=== PATIENT | female | born 1965 | race Caucasian/White ===

== ENCOUNTER 2018-05-30 22:01 | Emergency (ER) | payer OTHER ==
[~2018-05-30] VITALS: Ht 160 cm; Wt 62.1 kg
--- NOTE | 2018-05-30 22:05 | NUR ---
53 YO female BIB . 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 patient denies SOB, n/v or any other medical complaints at this time. Pt gowned, placed on radiographer cardiac catheterization. awaiting orders from provider, will continue to monitor
--- NOTE | 2018-05-30 22:10 | NUR ---
EMT AT BED SIDE FOR EKG
[2018-05-30 22:39] LABS: BASOPHILS % (AUTO) 0.2 % (0.0-2.0); EOSINOPHILS % (AUTO) 1.7 % (0.0-6.0); HEMATOCRIT 41 % (33-45); HEMOGLOBIN 13.6 g/dL (11.5-14.8); LYMPHOCYTES # (AUTO) 1.7 /CMM (0.8-4.8); LYMPHOCYTES % (AUTO) 38.1 % (20.0-44.0); MEAN CORPUSCULAR HEMOGLOBIN 28 PG (26.0-33.0); MEAN CORPUSCULAR HGB CONC 33 g/dl (31.0-36.0); MEAN CORPUSCULAR VOLUME 86 fL (82-100); MONOCYTES # (AUTO) 0.4 /CMM (0.1-1.30); MONOCYTES % (AUTO) 8.8 % (2.0-12.0); NEUTROPHILS # (AUTO) 2.3 /CMM (1.8-8.9); NEUTROPHILS % (AUTO) 51.2 % (43.0-81.0); PLATELET COUNT (AUTO) 251 /CMM (150-450); RDW COEFFICIENT OF VARIATION 13.8 (11.5-15.0); WHITE BLOOD COUNT (AUTO) 4.4 K/uL (4.3-11.0)
[2018-05-30 22:47] LABS: CALCIUM, SERUM 9.1 mg/dL (8.5-10.1); CARBON DIOXIDE 28 mmol/L (21-32); CHLORIDE 104 mmol/L (98-107); CREATININE 1.2 mg/dL (0.6-1.3); GLUCOSE 104 mg/dL (74-106); POTASSIUM 4.1 mmol/L (3.5-5.1); SODIUM SERUM 139 mmol/L (136-145); UREA NITROGEN, BLOOD 22 mg/dL (7-18)
[2018-05-30 22:55] LABS: TROPONIN I < 0.017 ng/mL (0.00-0.056)
[2018-05-30 22:56] LABS: INR 0.9 (0.87-1.13)
[2018-05-30 23:00] LABS: B-TYPE NATRIURETIC PEPTIDE 28 PG/ML (0-125)
[2018-05-31] MEDS ORDERED: IV NS 0.9% 250 ML IV ONE (00:30)
[2018-05-31] MEDS ORDERED: IOHEXOL-350 100 ML VIAL IV ONE (00:30)
[2018-05-31] MEDS ORDERED: CT SWABBABLE VALVE TRANS SET 1 EA INFUS.SET MC ONE (00:30)
[2018-05-31 02:27] VITALS: BP 110/55
--- NOTE | 2018-05-31 02:27 | NUR ---
Patient discharged to home in stable condition. Written and verbal after care instructions given. Patient verbalizes understanding of instruction.IV removed. Catheter intact and site benign. Pressure and 4x4 applied to site. No bleeding noted. pt ambulatory with a steady gait VITAL SIGNS WITHIN NORMAL LIMITS.
== END 2018-05-31 02:28 | disposition home or self-care (01) ==
LOC: ER 22:05
DX: R07.89 Other chest pain (principal)
CPT/HCPCS: 36415; 71045; 71275; 80048; 83880; 84484; 85025; 85378; 85730; 93005; 99285; A4606; J7050; Q9967; Z7610